=== PATIENT | male | born 1975 | race Caucasian/White ===

== ENCOUNTER 2021-06-11 15:56 | Emergency (ER) | payer BC ==
--- NOTE | 2021-06-11 16:53 | EDM.PDOC ---
ED HPI GENERAL MEDICAL PROBLEM - General Chief Complaint: Lower Extremity Injury/Pain Stated Complaint: LEFT FOOT SWELLING (BLOOD CLOTS?) Time Seen by Provider: 06/11/21 16:41 Source of Information: Reports: Patient, Provider, RN Notes Reviewed History Limitations: Reports: No Limitations - History of Present Illness INITIAL COMMENTS - FREE TEXT/NARRATIVE: 45-year-old gentleman presents emergency department today for further evaluation he was at his primary care provider's office that seen Ms. Sage at the [facility] in [place] he is currently being treated for cellulitis of the left foot he is on appropriate antibiotics did have blood work today including a Covid test which is negative Lyme's test is pending CBC unremarkable however he had a D-dimer test which is markedly elevated at over 6000. He does have some edema in his foot no significant edema in his calf or leg he is not having any pain he does have an inflamed lymph node in the groin on the left side. No shortness of breath no chest pain did have fevers at home - Related Data Allergies Allergy/AdvReac Type Severity Reaction Status Date / Time No Known Allergies Allergy Verified 06/11/21 16:23 Home Meds: Home Meds Doxycycline [Doxycycline Hyclate] 100 mg PO DAILY 06/11/21 [History] Fexofenadine [Sofia] 60 mg PO DAILY 06/11/21 [History] Fluticasone Propionate [Flonase] 1 spray IH DAILY 06/11/21 [History] Past Medical History HEENT History: Reports: Impaired Vision Cardiovascular History: Reports: Hypertension Respiratory History: Reports: Asthma, Other (See Below) Other Respiratory History: allergies - Infectious Disease History Infectious Disease History: Reports: Chicken Pox - Past Surgical History Head Surgeries/Procedures: Reports: None HEENT Surgical History: Reports: None Cardiovascular Surgical History: Reports: None Respiratory Surgical History: Reports: None Dermatological Surgical History: Reports: None Social & Family History - Tobacco Use Tobacco Use Status *Q: Former Tobacco User Used Tobacco, but Quit: Yes Month/Year Tobacco Last Used: 2009 - Caffeine Use Caffeine Use: Reports: Coffee, Soda, Tea - Alcohol Use Days Per Week of Alcohol Use: 4 Number of Drinks Per Day: 2 Total Drinks Per Week: 8 - Recreational Drug Use Recreational Drug Use: No Review of Systems - Review of Systems Review Of Systems: See Below Cardiovascular: Reports: No Symptoms GI/Abdominal: Reports: No Symptoms Musculoskeletal: Reports: Foot Pain Skin: Reports: Rash ED EXAM, GENERAL - Physical Exam Exam: See Below Free Text/Narrative:: Examination of the foot I do appreciate some erythema around the foot between digits 1 and 2 there is some pedal edema there is no edema in the calf there is no edema in the leg there is no tenderness to palpation in the calf or the leg. Exam Limited By: No Limitations General Appearance: Alert, WD/WN, No Apparent Distress Respiratory/Chest: No Respiratory Distress, Lungs Clear, Normal Breath Sounds, No Accessory Muscle Use, Chest Non-Tender Cardiovascular: Regular Rate, Rhythm, No Murmur Course - Vital Signs Last Recorded V/S: Last Vital Signs Temp 98 F 06/11/21 16:32 Pulse 99 06/11/21 16:32 Resp 22 H 06/11/21 16:32 BP 152/98 H 06/11/21 16:32 Pulse Ox 95 06/11/21 16:32 - Orders/Labs/Meds Orders: Active Orders 24 hr Category Date Time Status VL Duplex Lwr Ext Veins Ltd Lt [US] Stat Exams 06/11/21 16:49 Ordered Departure - Departure Time of Disposition: 17:30 Disposition: Home, Self-Care 01 Condition: Fair Clinical Impression: Cellulitis of left leg - Discharge Information Instructions: Cellulitis, Adult Referrals: PCP,None [Primary Care Provider] - Forms: ED Department Discharge Additional Instructions: Continue with your antibiotics keep your follow-up appointments with your primary care call return to the emergency department worsening of symptoms, Sepsis Event Note (ED) - Evaluation Sepsis Screening Result: No Definite Risk - Focused Exam Vital Signs: Vital Signs Temp Pulse Resp BP Pulse Ox 06/11/21 16:32 98 F 99 22 H 152/98 H 95 06/11/21 16:13 98 F 99 22 H 152/98 H 95 - My Orders Last 24 Hours: My Active Orders 06/11/21 16:49 VL Duplex Lwr Ext Veins Ltd Lt [US] Stat - Assessment/Plan Last 24 Hours: My Active Orders 06/11/21 16:49 VL Duplex Lwr Ext Veins Ltd Lt [US] Stat Plan: Assessment Acuity = acute Site and laterality = cellulitis left leg Etiology = probable bacterial Manifestations = none Location of injury = Home Lab values = ultrasound negative for DVT Plan I did review ultrasound results with him I feel the elevated D-dimer is probably related to any acute inflammatory response with his cellulitis the ultrasound does show significant lymph node enlargement in the groin on the left side which can be palpated he just started his antibiotics today and he does have follow- up with his primary care This note was dictated using [employer] voice recognition software please call with any questions on syntax or grammar.
--- NOTE | 2021-06-12 09:08 | US ---
VL Duplex Lwr Ext Veins Ltd Lt INDICATION: elevated d-dimer FINDINGS: Ultrasound examination of the lower extremity using Doppler and compressive technique demonstrates that the common femoral, femoral, and popliteal veins are patent, and negative for thrombus. The calf veins were segmentally visualized and are negative where seen. There is a mildly prominent lymph nodes in the inguinal region. IMPRESSION: Negative for deep venous thrombosis. Prominent left inguinal lymph nodes of questionable significance
== END 2021-06-11 17:38 | disposition home or self-care (01) ==
LOC: JP.ED 15:56
DX: L03.116 Cellulitis of left lower limb (principal); I10 Essential (primary) hypertension; J45.909 Unspecified asthma, uncomplicated; Z87.891 Personal history of nicotine dependence; Z79.899 Other long term (current) drug therapy
CPT/HCPCS: 93971-26-LT; 93971-LT; 99283-25